=== PATIENT | female | born 1935 | race Hispanic/Latino ===

== ENCOUNTER 2020-10-09 13:36 | Inpatient (IN) | payer MEDICARE ==
[2020-10-09] MEDS ORDERED: Lidocaine 4% Cream 5 GM TUBE w/ Tegaderm ONE (14:15)
[2020-10-09 14:26] LABS: #Basophils 0.1 thou/uL (0.0-0.2); #Eosinphils 0.1 thou/uL (0.0-0.7); #Lymphocytes 1.3 thou/uL (1.20-3.40); #Monocytes 0.6 thou/uL (0.11-0.59); #Neutrophils 7.4 thou/uL (1.40-6.50); %Basophils 0.7 % (0.0-1.0); %Eosinophils 1.2 % (0.0-10.0); %Lymphocytes 13.9 % (21.0-51.0); %Neutrophils 78.2 % (42.0-75.0); Hemoglobin 12.3 g/dL (12.0-16.0); Mean Corpuscular HGB CONC 31.2 g/dL (32.0-36.0); Mean Corpuscular Volume 86.5 fL (78.0-98.0); Platelet Count 128 thou/uL (130-400); RBC Distribution Width 15.8 % (11.5-14.5); Red Blood Cell (RBC) Count 4.56 mill/uL (4.20-5.40); White Blood Cell (WBC) Count 9.4 thou/uL (4.8-10.8)
[2020-10-09 14:34] LABS: ALT (SGPT) 17 U/L (8-55); AST (SGOT) 16 U/L (5-34); Albumin 3.1 g/dL (3.4-4.8); Alkaline Phosphatase 91 U/L (40-110); Anion Gap 16 mmol/L (10-20); BUN (Urea Nitrogen) 25 mg/dL (9.8-20.1); Bilirubin, Total 0.6 mg/dL (0.2-1.2); Calc. Creatinine Clearance 0 mL/min (70-130); Calcium 8.3 mg/dL (7.8-10.44); Carbon Dioxide 28 mmol/L (23-31); Chloride 103 mmol/L (98-107); Globulin 2.8 g/dL (2.4-3.5); Glucose 287 mg/dL (83-110); Lipase 55 U/L (8-78); Potassium 3.5 mmol/L (3.5-5.1); Protein, Total 5.9 g/dL (6.0-8.3); Sodium 143 mmol/L (136-145)
[2020-10-09 14:44] LABS: Bilirubin Negative (Negative); Blood, Urine Negative (Negative); Clarity Cloudy (Clear); Glucose, Urine (Dipstick) Negative (Negative); Ketone, Urine Negative (Negative); Leukocyte Trace (Negative); Nitrite Positive (Negative); Protein, Urine (Dipstick) 100 mg/dL (Neg-Trace); Specific Gravity, Urine 1.015 (1.005-1.030)
[2020-10-09 14:46] LABS: Bacteria/HPF 4+ HPF (None Seen); RBC/HPF 0-3 HPF (0-3); Renal Epithelial 0-3 HPF (None Seen); Squamous Epithelial 0-3 HPF (0-3)
[2020-10-09 14:49] LABS: MDiff Complete? YES
[2020-10-09 14:50] LABS: Large Platelets SLIGHT; Platelet Morphology Comment Appears Decreased
[2020-10-09] MEDS ORDERED: Hyoscyamine Sulfate SL 0.125 mg Tablet ONE (16:10)
[2020-10-09] MEDS ORDERED: Famotidine In NaCl 20 mg/50 ml Premix Bag ONE (16:10)
[2020-10-09 17:00] LABS: Lactic Acid 0.9 mmol/L (0.5-2.2)
[2020-10-09] MEDS ORDERED: Dextrose 50% Abboject 50 ML SYRINGE SLOW IVP PRN (17:10)
[2020-10-09] MEDS ORDERED: Loperamide HCl 2 MG CAP PO PRN ×2 (17:10)
[2020-10-09] MEDS ORDERED: HumaLOG 300 UNITS/3 ML VIAL SC PRN ×2 (17:10)
[2020-10-09] MEDS ORDERED: Ondansetron ODT 4 MG TAB PO PRN (17:10)
[2020-10-09] MEDS ORDERED: Dextrose 5% in Water 1,000 ML IV PRN (17:10)
[2020-10-09] MEDS ORDERED: Acetaminophen 325 MG TAB PO PRN (17:10)
--- NOTE | 2020-10-09 19:35 | CT ---
CT ABDOMEN AND PELVIS WITHOUT CONTRAST: Date: 10-09-2020 Comparison: 05-31-2020 FINDINGS: The lung bases show a few patchy infiltrative areas and a few areas of pleural thickening, more so in the right lung than left. These were not present on the prior abdomen study. The liver was normal in appearance for a noncontrast study. A vague low density area in the spleen sanchez s been seen before and has not changed. The spleen is not enlarged. The pancreas was unremarkable. Th ere is a prior cholecystectomy. The right kidney is now rotated, but neither kidney showed no gross m ass or hydronephrosis. Arteriosclerotic change in the aorta and branch vessels is quite severe, but t here is no aneurysm. The bowel shows no distention or signs of obstruction. Extensive sigmoid diverticulosis is present bu t there are no convincing findings of diverticulitis at the moment. No free air or free fluid was see n. CT of the pelvis shows no pelvic masses, fluid collections, or gross inflammatory changes. Degenerati ve changes of the spine are extensive. IMPRESSION: 1. A few patchy infiltrates and pleural thickening in the lung bases, mostly on the right. Not presen t on the prior CT from 06-11-2020. My understanding is that the patient is Covid positive, so this cou ld easily be the residual of that disease. Overall, the findings are not excessively severe. 2. Extensive sigmoid diverticulosis but no convincing findings of diverticulitis. POS: HOME
[2020-10-09] MEDS ORDERED: hydrOXYzine 25 MG TAB PO SCH (19:45)
[2020-10-09] MEDS: Piperacillin/Tazobactam 2.25 GM in Sodium Chloride 0.9% 100 ML IVPB SCH (19:46)
--- NOTE | 2020-10-09 20:02 | HP ---
CHIEF COMPLAINT: Abdominal pain and diarrhea. HISTORY OF THE PRESENT ILLNESS: Ms. Zacarias is an 85-year-old female, who presented to the emergency department today complaining of periumbilical abdominal pain and diarrhea with acute onset this a.m. She has past medical history of coronary artery disease, status post coronary artery bypass graft and recent hospitalization 09/25 for weakness during which she was found to have a urinary tract infection positive for Escherichia coli greater than 100,000 CFU and SARS COVID 2 positive. She was discharged on September 26. During the hospitalization, she had also reported a recent fall and a CT scan was done to evaluate neck pain and was ruled out also for PE. During this imaging, the patient was found to have a new left-sided rib fracture. She was discharged with a prescription for Omnicef. Cardiology recommended followup as an outpatient, and was consulted due to indeterminate troponins, which was ruled out for acute coronary syndrome upon further evaluation. Apparently at home, the patient had someone attending her, but told EMS that they did not know who she was. She reports she has been getting meals for seniors, and has been eating solid food at home up until today. She denied any associated nausea or vomiting. She has not had fever, chills, or shortness of breath. She denies any chest pain. In the emergency department, she was given a liter of normal saline as her renal function has declined since her previous hospitalization, stool studies have been ordered, urinalysis still looks consistent with urinary tract infection and cultures have been ordered. She was given a dose of Levsin, which improved the diarrhea, but now localizes the pain to the left lower quadrant. PAST MEDICAL HISTORY: 1. Coronary artery disease, status post coronary artery bypass graft. 2. Hypertension. 3. Diabetes, insulin-dependent. 4. Recent hospitalization for COVID-19 and urinary tract infection, Escherichia coli. 5. Left Rib Fracture 10/12. PAST SURGICAL HISTORY: Coronary artery bypass graft. FAMILY HISTORY: Diabetes mellitus. SOCIAL HISTORY: Denies alcohol, tobacco, or illicit drug use. Her living situation previously was with family, but she cannot tell us who has been attending to her at home. She usually ambulates with a cane or a walker as needed. MEDICATIONS: 1. Lantus 20 units subcu b.i.d. 2. Carvedilol 25 mg p.o. b.i.d. 3. Aspirin 81 mg p.o. daily. 4. Atorvastatin 80 mg p.o. q.h.s. 5. Vitamin D3 1000 units p.o. daily. 6. Cholestyramine 1 packet p.o. daily. 7. Furosemide 20 mg p.o. daily p.r.n. 8. Tradjenta 5 mg p.o. daily. 9. Pantoprazole 40 mg daily. 10. Clonidine 0.1 mg p.o. b.i.d. 11. Albuterol HFA 2 puffs inhaled q.4 hours p.r.n. 12. Vitamin C 1000 mg p.o. daily. 13. Omnicef 300 mg p.o. b.i.d. x7, if the patient took this as directed, she would have completed the course. 14. Florastor 250 mg p.o. daily. 15. Zinc 220 mg p.o. daily. ALLERGIES: NO KNOWN DRUG ALLERGIES. REVIEW OF SYSTEMS: GENERAL: Patient denies fever, chills, weakness or malaise. HEENT: Denies any vision changes, nasal congestion, ear pain, sore throat. CARDIOVASCULAR: Denies chest pain, palpitations, orthopnea, PND, or edema. RESPIRATORY: Denies cough, shortness of breath, hemoptysis, or wheezing. ABDOMEN: Positive for abdominal pain, diarrhea. Denies constipation, nausea, vomiting, gross blood in the stool. EXTREMITIES: Patient denies any joint pain. HEMATOLOGIC: Patient denies easy bleeding or bruising. LYMPHATIC: Denies any swollen lymph nodes. PSYCHIATRIC: Denies any history. PHYSICAL EXAMINATION: VITAL SIGNS: Blood pressure 148/68, pulse 68, respirations 16, temp 98.1, pain 0/10, O2 saturation 96% on room air. GENERAL: Well-developed, thin, female, in no acute distress. Alert and oriented to person, place, and time, but intermittently confused regarding presentation and her care status at home. No acute distress. HEENT: Pupils equally round and reactive to light and accommodation, extraocular muscles intact. Nares are patent without discharge. Tongue protrudes in the midline. NECK: Supple without lymphadenopathy, thyromegaly, JVD. CARDIOVASCULAR: Regular rate and rhythm with frequent ectopy. No murmurs, clicks, rubs, or gallops. ABDOMEN: Positive bowel sounds in all 4 quadrants. Soft, tenderness to palpation localized in left lower quadrant without guarding or rebound. EXTREMITIES: No cyanosis, clubbing, or edema. NEUROLOGIC: Cranial nerves II through XII grossly intact without focal deficits. Normal muscle tone. LABORATORY DATA: White count 9.4 with 78% neutrophils, 14% lymphocytes, hemoglobin 12.3, hematocrit 39.5, platelets 128. Sodium 143, potassium 3.5, chloride 103, bicarb 28, BUN 25, creatinine 1.56, glucose 287, lactic acid 2.6 with repeat 0.9, calcium 8.3, AST 16, ALT 17, alkaline phosphatase 91, albumin 3.1, lipase 55. Urinalysis shows 100 protein, positive nitrite, trace leukocyte esterase, 0-3 rbc, 4-6 wbc, 0-3 squamous epithelial cells, 4+ bacteria. Stool occult blood is positive. EKG performed per ED physician shows sinus rhythm without ischemic changes. ASSESSMENT AND PLAN: 1. Left lower quadrant abdominal pain with enteritis. The patient will be admitted and was already given a liter of IV fluids in the emergency room. We will give a peripheral saline lock for now. We will order stool culture, Clostridium difficile, fecal lactoferrin. Due to localized abdominal pain, we will get a CT of the abdomen and pelvis without contrast secondary to her elevated creatinine. We will continue Levsin p.r.n. and loperamide as needed. We will give Zofran for nausea. We will give her clear liquid diet for now. Placed on Pepcid 20 mg b.i.d. and continue probiotic. 2. Acute kidney injury. BUN and creatinine up from previous stay. This may be secondary to dehydration. She was given a liter of fluids in the ER. We will recheck her BMP in the am, and renally dose medications as needed. 3. Insulin-dependent diabetes mellitus. The patient will be placed on her home dose of Lantus, and will be given a NovoLog sliding scale mild and bedtime algorithm correction with Accu-Cheks q.a.c. and q.h.s. 4. Coronary artery disease. The patient will be continued on her home medications. 5. Hypertension. We will monitor while hospitalized. We will continue home medications. 6. Occult blood positive for stool. The patient will need GI consultation for colonoscopy as an outpatient. This may be secondary to infectious diarrhea. We will follow. 7. Urinary tract infection, Escherichia coli, present on admission. Patient should have completed a course of Omnicef outpatient, but it is unclear if she was compliant with that. Following her CT results, we will place her on appropriate antimicrobial therapy, goal directed. We will get a urine culture. 8. Coronavirus disease 19 positive, present on admission. Technically, the patient has past 10 days of onset with new-onset diarrhea. This could be sequela of infection. We will put droplet/contact precautions and give O2 p.r.n. to maintain sats greater than 92%. 9. Recent left rib fracture. The patient denies any pain, but we will give Tylenol p.r.n. 10. Prophylaxis. The patient will be placed on her home PPI, and given mechanical prophylaxis with SCDs secondary to her occult positive stool. CODE STATUS: Patient is full code. DISPOSITION: APS report was filed in the emergency department and will need to follow up report regarding placement. Expect home with Home Health pending that evaluation. Job ID: [id number] [facility]
[2020-10-09] MEDS ORDERED: Albuterol 200 PUFF (6.7GM INHALER) INH PRN (20:40)
[2020-10-09] MEDS ORDERED: Famotidine 20 MG TAB PO SCH (21:00)
[2020-10-09] MEDS: Atorvastatin Calcium 40 MG TAB PO SCH (22:40)
[2020-10-09] MEDS: cloNIDine 0.1 MG TAB PO SCH (22:40)
[2020-10-09] MEDS: Carvedilol 25 MG TAB PO SCH (22:41)
[2020-10-09] MEDS: Lantus 1000 UNITS/10 ML VIAL SC SCH (22:53)
[2020-10-10] MEDS: Piperacillin/Tazobactam 2.25 GM in Sodium Chloride 0.9% 100 ML IVPB SCH ×4 (01:22→22:15)
[2020-10-10 05:32] LABS: ALT (SGPT) 14 U/L (8-55); AST (SGOT) 14 U/L (5-34); Albumin 2.6 g/dL (3.4-4.8); Alkaline Phosphatase 73 U/L (40-110); Anion Gap 12 mmol/L (10-20); BUN (Urea Nitrogen) 23 mg/dL (9.8-20.1); Bilirubin, Total 0.5 mg/dL (0.2-1.2); Calc. Creatinine Clearance 31 mL/min (70-130); Calcium 7.9 mg/dL (7.8-10.44); Carbon Dioxide 29 mmol/L (23-31); Chloride 107 mmol/L (98-107); Globulin 2.3 g/dL (2.4-3.5); Glucose 123 mg/dL (83-110); Potassium 3.2 mmol/L (3.5-5.1); Protein, Total 4.9 g/dL (6.0-8.3); Sodium 145 mmol/L (136-145)
[2020-10-10 05:36] LABS: #Basophils 0.1 thou/uL (0.0-0.2); #Eosinphils 0.1 thou/uL (0.0-0.7); #Lymphocytes 1.8 thou/uL (1.20-3.40); #Monocytes 0.8 thou/uL (0.11-0.59); #Neutrophils 4.2 thou/uL (1.40-6.50); %Basophils 1.1 % (0.0-1.0); %Eosinophils 1.5 % (0.0-10.0); %Lymphocytes 25.2 % (21.0-51.0); %Monocytes 11.3 % (0.0-10.0); %Neutrophils 60.9 % (42.0-75.0); Hemoglobin 10.6 g/dL (12.0-16.0); Mean Corpuscular Hemoglobin 26.6 pg (27.0-31.0); Mean Platelet Volume 14.2 fL (7.4-10.4); Platelet Count 108 thou/uL (130-400); RBC Distribution Width 15.7 % (11.5-14.5); Red Blood Cell (RBC) Count 3.97 mill/uL (4.20-5.40)
[2020-10-10 05:57] LABS: Platelet Morphology Comment Appears Decreased; RBC Morphology Normal
[2020-10-10 06:03] LABS: Burr Cells SLIGHT = 2-5 cells (100X) (0-1/hpf); Elliptocytes SLIGHT = 2-5 cells (100X) (0-1/hpf); Poikilocytosis SLIGHT = 6-15 cells (100X) (0-5/hpf)
[2020-10-10] MEDS: Ascorbic Acid 500 mg Chewable Tablet PO SCH (08:08)
[2020-10-10] MEDS: Cholecalciferol 1,000 UNITS (25 MCG) TAB PO SCH (08:09)
[2020-10-10] MEDS: Saccharomyces boulardii 250 MG CAP PO SCH (08:09)
[2020-10-10] MEDS: Aspirin 81 mg Enteric Coated Tablet PO SCH (08:09)
[2020-10-10] MEDS: Carvedilol 25 MG TAB PO SCH ×2 (08:09→22:16)
[2020-10-10] MEDS: cloNIDine 0.1 MG TAB PO SCH ×2 (08:09→22:17)
[2020-10-10] MEDS: Zinc Sulfate 220 MG CAP PO SCH (08:09)
[2020-10-10] MEDS: Losartan Potassium 50 MG TAB PO SCH (08:09)
[2020-10-10] MEDS ORDERED: Alogliptin 6.25 MG TAB PO SCH ×2 (09:00→09:45)
[2020-10-10] MEDS ORDERED: Prevnar 13-Val Conj/PF 0.5 ML SYRINGE IM ONE (09:00)
[2020-10-10] MEDS ORDERED: FLU VACC QS2020-21(65YR UP)/PF 240 MCG/0.7 ML SYRINGE IM ONE (09:00)
[2020-10-10] MEDS ORDERED: Cholestyramine/Aspartame 4 gm Packet PO SCH (09:45)
[2020-10-10] MEDS: Lantus 1000 UNITS/10 ML VIAL SC SCH ×2 (09:56→22:18)
[2020-10-10] MEDS ORDERED: Potassium Chloride 20 MEQ TAB PO SCH (10:15)
[2020-10-10 11:20] VITALS: BMI 24.9
[2020-10-10] MEDS ORDERED: risperiDONE 0.5 MG TAB PO PRN (17:03)
--- NOTE | 2020-10-10 17:19 | PDOC.BPN ---
- Brief Progress Note Encounter Date: 10/10/20 Encounter Time: 17:18 Patient seen and examined this afternoon. She had an episode of altered mental status that included agitation and anxiety consistent with sundowning last p.m. Brit cruz was called. Hydroxyzine was ordered. Pt. remained restless last p.m. Per staff, she was alert and oriented x 4, but this evening she is becoming confused again. She had a loose stool this a.m. but no further diarrhea episodes. Her abdominal pain has resolved. She is tolerating a clear liquid diet without nausea or vomiting. Her [id number] called to check on her earlier today. Selected Entries 10/10/20 12:00 Pulse Rhythm Regular Respiratory Non-Labored Effort Temperature Oral Source Temperature 97.9 F Pulse Rate 58 L Blood Pressure 148/64 H [Semi-Fowlers] Respiratory 18 Rate O2 Sat by Pulse 98 Oximetry Oxygen Delivery Nasal Cannula Method Laboratory Tests 10/10/20 10/10/20 07:39 16:30 POC Glucose 72 103 C difficile antigen positive, toxin negative. Stool culture pending. Ecoli per urine culture x >75K CFU. Hospitalist ROS - Review of Systems Constitutional: denies: fever, chills, sweats, weakness Eyes: denies: vision change Respiratory: denies: cough, shortness of breath Cardiovascular: denies: chest pain, palpitations Gastrointestinal: denies: nausea, vomiting, abdominal pain, diarrhea, constipation Neurological: reports: confusion. denies: weakness - Medication Medications: Active Medications Generic Name Dose Route Start Last Admin Trade Name Jakobq PRN Reason Stop Dose Admin Acetaminophen 650 mg 10/09/20 17:10 10/10/20 14:37 Acetaminophen 325 Mg Tab PO 650 mg Q4H PRN Administration Headache/Fever/Mild Pain (1-3) Ascorbic Acid 1,000 mg 10/10/20 09:00 10/10/20 08:08 Ascorbic Acid 500 Mg Chewable Tablet PO 1,000 mg DAILY GAUTAM Administration Aspirin 81 mg 10/10/20 09:00 10/10/20 08:09 Aspirin 81 Mg Enteric Coated Tablet PO 81 mg DAILY GAUTAM Administration Atorvastatin Calcium 80 mg 10/09/20 21:00 10/09/20 22:40 Atorvastatin Calcium 40 Mg Tab PO 80 mg HS GAUTAM Administration Carvedilol 25 mg 10/09/20 21:00 10/10/20 08:09 Carvedilol 25 Mg Tab PO 25 mg BID GAUTAM Administration Cholecalciferol 1,000 units 10/10/20 09:00 10/10/20 08:09 Cholecalciferol 1,000 Units (25 Mcg) Tab PO 1,000 units DAILY GAUTAM Administration Clonidine 0.1 mg 10/09/20 21:00 10/10/20 08:09 Clonidine 0.1 Mg Tab PO 0.1 mg BID GAUTAM Administration Piperacillin Sod/Tazobactam 100 mls @ 200 mls/hr 10/09/20 20:00 10/10/20 14:37 Sod 2.25 gm/ Sodium Chloride IVPB 100 mls 0200,0800,1400,2000 GAUTAM Administration Insulin Glargine 20 units 10/09/20 21:00 10/10/20 09:56 Lantus 1000 Units/10 Ml Vial SC 20 unit BID GAUTAM Administration Losartan Potassium 50 mg 10/10/20 09:00 10/10/20 08:09 Losartan Potassium 50 Mg Tab PO 50 mg DAILY GAUTAM Administration Pantoprazole Sodium 40 mg 10/10/20 09:00 10/10/20 08:09 Pantoprazole 40 Mg Tab PO 40 mg DAILY GAUTAM Administration Saccharomyces Boulardii 250 mg 10/10/20 09:00 10/10/20 08:09 Saccharomyces Boulardii 250 Mg Cap PO 250 mg DAILY GAUTAM Administration Zinc Sulfate 220 mg 10/10/20 09:00 10/10/20 08:09 Zinc Sulfate 220 Mg Cap PO 220 mg DAILY GAUTAM Administration - Exam General Appearance: NAD (sleeping but easily arousable) Eye: PERRL, anicteric sclera ENT: normocephalic atraumatic, moist mucosa Neck: supple, no lymphadenopathy Heart: RRR, no murmur Respiratory: CTAB, no wheezes Gastrointestinal: soft, non-tender, non-distended, normal bowel sounds, no guarding, no rigidity Extremities: no cyanosis, no clubbing, no edema Neurological: cranial nerve grossly intact, no weakness, no focal deficits Musculoskeletal: normal tone Psychiatric: normal affect, oriented to person Hosp A/P (1) Acute infective gastroenteritis Code(s): A09 - INFECTIOUS GASTROENTERITIS AND COLITIS, UNSPECIFIED Status: Acute Plan: Suspect related to Covid 19. Given that the diarrhea has ceased, and c. diff is antigen positive, toxin negative, no treatment for c. diff will be needed at this time. Continue probiotic. Will need gastroenterology as outpatient for screening colonoscopy at some point due to stool occult blood positive. Advance diet as tolerated. (2) Diverticulosis Code(s): K57.90 - DVRTCLOS OF INTEST, PART UNSP, W/O PERF OR ABSCESS W/O BLEED Status: Acute Plan: No signs of inflammatory changes per CT scan. Will observe. (3) Acute kidney injury Code(s): N17.9 - ACUTE KIDNEY FAILURE, UNSPECIFIED Status: Acute Plan: She is tolerating PO. Will repeat BMP in a.m. (4) Code(s): F05 - DELIRIUM DUE TO KNOWN PHYSIOLOGICAL CONDITION Status: Acute Plan: Will give patient a small dose of risperdone at bedtime and PRN. (5) COVID-19 Code(s): U07.1 - COVID-19 Status: Acute (6) E. coli urinary tract infection Code(s): N39.0 - URINARY TRACT INFECTION, SITE NOT SPECIFIED; B96.20 - UNSP ESCHERICHIA COLI THE CAUSE OF DISEASES CLASSD ELSWHR Status: Acute Plan: Await final ID and sensitivity. Continue Zosyn. (7) Hypokalemia Code(s): E87.6 - HYPOKALEMIA Status: Acute Plan: Given a dose of potassium this a.m. Recheck tomorrow. - Plan plan discussed w/ family, social insurance specialist, out of bed/ambulate, DVT proph w/SCDs, GI proph
[2020-10-10] MEDS: Atorvastatin Calcium 40 MG TAB PO SCH (22:15)
[2020-10-10] MEDS: risperiDONE 0.5 MG TAB PO SCH (22:18)
[2020-10-11] MEDS: Piperacillin/Tazobactam 2.25 GM in Sodium Chloride 0.9% 100 ML IVPB SCH ×3 (02:20→14:07)
[2020-10-11 05:39] LABS: Anion Gap 12 mmol/L (10-20); BUN (Urea Nitrogen) 19 mg/dL (9.8-20.1); Calc. Creatinine Clearance 32 mL/min (70-130); Calcium 7.8 mg/dL (7.8-10.44); Carbon Dioxide 27 mmol/L (23-31); Chloride 109 mmol/L (98-107); Glucose 143 mg/dL (83-110); Potassium 4.2 mmol/L (3.5-5.1); Sodium 144 mmol/L (136-145)
[2020-10-11] MEDS: Cholestyramine/Aspartame 4 gm Packet PO SCH (08:27)
[2020-10-11] MEDS: Lantus 1000 UNITS/10 ML VIAL SC SCH ×2 (08:27→21:20)
[2020-10-11] MEDS: Saccharomyces boulardii 250 MG CAP PO SCH (08:28)
[2020-10-11] MEDS: Ascorbic Acid 500 mg Chewable Tablet PO SCH (08:28)
[2020-10-11] MEDS: cloNIDine 0.1 MG TAB PO SCH ×2 (08:29→21:22)
[2020-10-11] MEDS: Losartan Potassium 50 MG TAB PO SCH (08:29)
[2020-10-11] MEDS: Cholecalciferol 1,000 UNITS (25 MCG) TAB PO SCH (08:29)
[2020-10-11] MEDS: Alogliptin 6.25 MG TAB PO SCH (08:30)
[2020-10-11] MEDS: Aspirin 81 mg Enteric Coated Tablet PO SCH (08:30)
[2020-10-11] MEDS: Carvedilol 25 MG TAB PO SCH ×2 (08:30→21:22)
[2020-10-11] MEDS: Zinc Sulfate 220 MG CAP PO SCH (08:30)
--- NOTE | 2020-10-11 15:12 | PDOC.BPN ---
- Brief Progress Note Encounter Date: 10/11/20 Encounter Time: 15:10 Mrs. Zacarias is feeling better. She has not had any diarrhea stools since yesterday. She had a brief episode of nausea this a.m. that resolved with Zo hector. Her glucose also dropped into the 50s before her breakfast but came up after eating. She has no complaints. owning was improved last p.m. with less agitation. She slept all night with the respiridone. She is alert today and still will not identify anyone that she wants involved in her care. She states that her doctors make her medical decisions and she has transportation arrangements with her insurance to get her to and from her doctor's appointments. Selected Entries 10/11/20 10/11/20 06:30 08:29 Respiratory Normal Effort Temperature 96.9 F L Pulse Rate 59 L Blood Pressure 152/68 H Respiratory 18 Rate O2 Sat by Pulse 99 Oximetry Oxygen Delivery Room Air Method Hospitalist ROS - Review of Systems Constitutional: denies: fever, chills, weakness Respiratory: denies: cough, shortness of breath Cardiovascular: denies: chest pain Gastrointestinal: denies: vomiting, abdominal pain, diarrhea, constipation Genitourinary: denies: dysuria Skin: denies: rash - Medication Medications: Active Medications Generic Name Dose Route Start Last Admin Trade Name Jakobq PRN Reason Stop Dose Admin Acetaminophen 650 mg 10/09/20 17:10 10/10/20 14:37 Acetaminophen 325 Mg Tab PO 650 mg Q4H PRN Administration Headache/Fever/Mild Pain (1-3) Alogliptin Benzoate 12.5 mg 10/11/20 09:00 10/11/20 08:30 Alogliptin 6.25 Mg Tab PO 12.5 mg DAILY GAUTAM Administration Ascorbic Acid 1,000 mg 10/10/20 09:00 10/11/20 08:28 Ascorbic Acid 500 Mg Chewable Tablet PO 1,000 mg DAILY GAUTAM Administration Aspirin 81 mg 10/10/20 09:00 10/11/20 08:30 Aspirin 81 Mg Enteric Coated Tablet PO 81 mg DAILY GAUTAM Administration Atorvastatin Calcium 80 mg 10/09/20 21:00 10/10/20 22:15 Atorvastatin Calcium 40 Mg Tab PO 80 mg HS GUATAM Administration Carvedilol 25 mg 10/09/20 21:00 10/11/20 08:30 Carvedilol 25 Mg Tab PO 25 mg BID GAUTAM Administration Cholecalciferol 1,000 units 10/10/20 09:00 10/11/20 08:29 Cholecalciferol 1,000 Units (25 Mcg) Tab PO 1,000 units DAILY GAUTAM Administration Cholestyramine Resin 4 gm 10/11/20 09:00 10/11/20 08:27 Cholestyramine/Aspartame 4 Gm Packet PO 4 gm DAILY GAUTAM Administration Clonidine 0.1 mg 10/09/20 21:00 10/11/20 08:29 Clonidine 0.1 Mg Tab PO 0.1 mg BID GAUTAM Administration Losartan Potassium 50 mg 10/10/20 09:00 10/11/20 08:29 Losartan Potassium 50 Mg Tab PO 50 mg DAILY GAUTAM Administration Ondansetron HCl 4 mg 10/09/20 17:10 10/11/20 09:43 Ondansetron Odt 4 Mg Tab PO 4 mg Q6H PRN Administration Nausea/Vomiting Pantoprazole Sodium 40 mg 10/10/20 09:00 10/11/20 08:30 Pantoprazole 40 Mg Tab PO 40 mg DAILY GAUTAM Administration Risperidone 0.25 mg 10/10/20 21:00 10/10/20 22:18 Risperidone 0.5 Mg Tab PO 0.25 mg HS GAUTAM Administration Saccharomyces Boulardii 250 mg 10/10/20 09:00 10/11/20 08:28 Saccharomyces Boulardii 250 Mg Cap PO 250 mg DAILY GAUTAM Administration Sodium Chloride 10 ml 10/10/20 21:00 10/11/20 08:27 Flush - Normal Saline 10 Ml Syringe IVF 10 ml Q12HR GAUTAM Administration Zinc Sulfate 220 mg 10/10/20 09:00 10/11/20 08:30 Zinc Sulfate 220 Mg Cap PO 220 mg DAILY GAUTAM Administration - Exam General Appearance: NAD, awake alert Eye: PERRL, anicteric sclera ENT: normocephalic atraumatic, moist mucosa Neck: supple Heart: RRR, no murmur Respiratory: CTAB, no wheezes, no rales, no ronchi Gastrointestinal: soft, non-tender, non-distended, normal bowel sounds, no palpable masses, no guarding Extremities: no cyanosis, no clubbing, no edema Skin: normal turgor Neurological: cranial nerve grossly intact, no weakness Psychiatric: normal affect, oriented to person. negative: oriented to place, oriented to time Hospitalist Results - Labs Result Diagrams: 10/10/20 04:55 10/11/20 04:55 Lab results: WBC 7.0 thou/uL (4.8-10.8) 10/10/20 04:55 Hgb 10.6 g/dL (12.0-16.0) L 10/10/20 04:55 Hct 34.1 % (36.0-47.0) L 10/10/20 04:55 MCV 86.0 fL (78.0-98.0) 10/10/20 04:55 Plt Count 108 thou/uL (130-400) L 10/10/20 04:55 Neutrophils % 60.9 % (42.0-75.0) 10/10/20 04:55 Sodium 144 mmol/L (136-145) 10/11/20 04:55 Potassium 4.2 mmol/L (3.5-5.1) 10/11/20 04:55 Chloride 109 mmol/L (98-107) H 10/11/20 04:55 Carbon Dioxide 27 mmol/L (23-31) 10/11/20 04:55 BUN 19 mg/dL (9.8-20.1) 10/11/20 04:55 Creatinine 1.30 mg/dL (0.6-1.1) H 10/11/20 04:55 Glucose 143 mg/dL (83-110) H 10/11/20 04:55 Lactic Acid 0.9 mmol/L (0.5-2.2) 10/09/20 16:37 Calcium 7.8 mg/dL (7.8-10.44) 10/11/20 04:55 Total Bilirubin 0.5 mg/dL (0.2-1.2) 10/10/20 04:55 AST 14 U/L (5-34) 10/10/20 04:55 ALT 14 U/L (8-55) 10/10/20 04:55 Alkaline Phosphatase 73 U/L (40-110) 10/10/20 04:55 Serum Total Protein 4.9 g/dL (6.0-8.3) L 10/10/20 04:55 Albumin 2.6 g/dL (3.4-4.8) L 10/10/20 04:55 Lipase 55 U/L (8-78) 10/09/20 14:10 Urine Ketones Negative mg/dL (Negative) 10/09/20 14:19 Urine Blood Negative (Negative) 10/09/20 14:19 Urine Nitrite Positive (Negative) A 10/09/20 14:19 Ur Leukocyte Esterase Trace (Negative) H 10/09/20 14:19 Urine RBC 0-3 HPF (0-3) 10/09/20 14:19 Urine WBC 4-6 HPF (0-3) A 10/09/20 14:19 Ur Squamous Epith Cells 0-3 HPF (0-3) 10/09/20 14:19 Urine Bacteria 4+ HPF (None Seen) A 10/09/20 14:19 Hosp A/P (1) Acute infective gastroenteritis Code(s): A09 - INFECTIOUS GASTROENTERITIS AND COLITIS, UNSPECIFIED Status: Resolved Plan: C. diff antigen positive, toxin negative without further episodes or inflammatory changes on CT scan. Will need outpatient GI referral for colonoscopy due to heme positive stool on admission. (2) Acute kidney injury Code(s): N17.9 - ACUTE KIDNEY FAILURE, UNSPECIFIED Status: Acute Plan: Continue hydration orally. Recheck in a.m. (3) COVID-19 Code(s): U07.1 - COVID-19 Status: Acute Plan: Can d/c isolation/droplet precautions once she is 72 hours past her most recent symptoms. It has been >10 days since diagnosis. (4) Diverticulosis Code(s): K57.90 - DVRTCLOS OF INTEST, PART UNSP, W/O PERF OR ABSCESS W/O BLEED Status: Chronic Plan: Low residue diet. (5) E. coli urinary tract infection Code(s): N39.0 - URINARY TRACT INFECTION, SITE NOT SPECIFIED; B96.20 - UNSP ESCHERICHIA COLI THE CAUSE OF DISEASES CLASSD ELSWHR Status: Acute Plan: E coli sensitivities back. Sensitive to zosyn but resistant to ampicillin. Sensitive to Bactrim. Will d/c Zosyn and start Bactrim DS BID. (6) Hypokalemia Code(s): E87.6 - HYPOKALEMIA Status: Resolved (7) Code(s): F05 - DELIRIUM DUE TO KNOWN PHYSIOLOGICAL CONDITION Status: Acute Plan: Continue respiridone at night and prn. She will need 24 hour care if her mental status doesn't resolve further, especially at night. Still no clear medical decision maker identified. Will get a sr. social media & mobile manager consult. - Plan sr. social media & mobile manager, out of bed/ambulate
[2020-10-11] MEDS: Atorvastatin Calcium 40 MG TAB PO SCH (21:22)
[2020-10-11] MEDS: Sulfameth/Trimethoprim DS 800-160mg TAB PO SCH (21:22)
[2020-10-11] MEDS: risperiDONE 0.5 MG TAB PO SCH (21:23)
[2020-10-12 05:24] LABS: Anion Gap 11 mmol/L (10-20); BUN (Urea Nitrogen) 16 mg/dL (9.8-20.1); Calc. Creatinine Clearance 37 mL/min (70-130); Carbon Dioxide 26 mmol/L (23-31); Chloride 110 mmol/L (98-107); Glucose 78 mg/dL (83-110); Potassium 3.8 mmol/L (3.5-5.1); Sodium 143 mmol/L (136-145)
[2020-10-12] MEDS: Lantus 1000 UNITS/10 ML VIAL SC SCH ×2 (09:28→21:20)
[2020-10-12] MEDS: Ascorbic Acid 500 mg Chewable Tablet PO SCH (09:28)
[2020-10-12] MEDS: Cholestyramine/Aspartame 4 gm Packet PO SCH (09:28)
[2020-10-12] MEDS: Aspirin 81 mg Enteric Coated Tablet PO SCH (09:29)
[2020-10-12] MEDS: Zinc Sulfate 220 MG CAP PO SCH (09:30)
[2020-10-12] MEDS: Cholecalciferol 1,000 UNITS (25 MCG) TAB PO SCH (09:30)
[2020-10-12] MEDS: Losartan Potassium 50 MG TAB PO SCH (09:30)
[2020-10-12] MEDS: Sulfameth/Trimethoprim DS 800-160mg TAB PO SCH ×2 (09:30→21:05)
[2020-10-12] MEDS: Alogliptin 6.25 MG TAB PO SCH (09:30)
[2020-10-12] MEDS: Saccharomyces boulardii 250 MG CAP PO SCH (09:30)
[2020-10-12] MEDS: Carvedilol 25 MG TAB PO SCH ×2 (09:30→20:00)
[2020-10-12] MEDS: cloNIDine 0.1 MG TAB PO SCH ×2 (09:30→21:06)
--- NOTE | 2020-10-12 13:19 | PDOC.BPN ---
- Brief Progress Note Encounter Date: 10/12/20 Encounter Time: 13:17 Pt. was seen today. She has no complaints. No further diarrhea or abdominal pain. No hypoglycemia or nausea this a.m. Family present at the hospital today state that they cannot provide 24 hour care for her at home and request that she go to assisted facility until she is able to be left alone. Selected Entries 10/12/20 10/12/20 10/12/20 06:30 08:00 09:30 Respiratory Non-Labored Effort Temperature 97.9 F Pulse Rate 85 Blood Pressure 146/72 H Respiratory 20 Rate O2 Sat by Pulse 98 Oximetry Oxygen Delivery Room Air Method Hospitalist ROS - Review of Systems Constitutional: denies: fever, chills, sweats, weakness Eyes: denies: vision change ENT: denies: nose congestion Respiratory: denies: cough, shortness of breath Cardiovascular: denies: chest pain, palpitations Gastrointestinal: denies: nausea, vomiting, abdominal pain, diarrhea, constipation Genitourinary: denies: dysuria Skin: denies: rash Neurological: denies: weakness - Medication Medications: Active Medications Generic Name Dose Route Start Last Admin Trade Name Freq PRN Reason Stop Dose Admin Acetaminophen 650 mg 10/09/20 17:10 10/10/20 14:37 Acetaminophen 325 Mg Tab PO 650 mg Q4H PRN Administration Headache/Fever/Mild Pain (1-3) Alogliptin Benzoate 12.5 mg 10/11/20 09:00 10/12/20 09:30 Alogliptin 6.25 Mg Tab PO 12.5 mg DAILY GAUTAM Administration Ascorbic Acid 1,000 mg 10/10/20 09:00 10/12/20 09:28 Ascorbic Acid 500 Mg Chewable Tablet PO 1,000 mg DAILY GAUTAM Administration Aspirin 81 mg 10/10/20 09:00 10/12/20 09:29 Aspirin 81 Mg Enteric Coated Tablet PO 81 mg DAILY GAUTAM Administration Atorvastatin Calcium 80 mg 10/09/20 21:00 10/11/20 21:22 Atorvastatin Calcium 40 Mg Tab PO 80 mg HS GAUTAM Administration Carvedilol 25 mg 10/09/20 21:00 10/12/20 09:30 Carvedilol 25 Mg Tab PO 25 mg BID GAUTAM Administration Cholecalciferol 1,000 units 10/10/20 09:00 10/12/20 09:30 Cholecalciferol 1,000 Units (25 Mcg) Tab PO 1,000 units DAILY GAUTAM Administration Cholestyramine Resin 4 gm 10/11/20 09:00 10/12/20 09:28 Cholestyramine/Aspartame 4 Gm Packet PO 4 gm DAILY GAUATM Administration Clonidine 0.1 mg 10/09/20 21:00 10/12/20 09:30 Clonidine 0.1 Mg Tab PO 0.1 mg BID GAUTAM Administration Insulin Glargine 15 units 10/11/20 14:58 10/12/20 09:28 Lantus 1000 Units/10 Ml Vial SC 15 unit BID GAUTAM Administration Insulin Human Lispro 0 units 10/09/20 17:10 10/11/20 17:25 Humalog 300 Units/3 Ml Vial SC 3 unit .MILD SLIDING SCALE PRN Administration Mild Correctional Scale Insulin Human Lispro 0 units 10/09/20 17:10 10/11/20 21:21 Humalog 300 Units/3 Ml Vial SC 3 unit .BEDTIME SLIDING SC PRN Administration Bedtime Correctional Scale Losartan Potassium 50 mg 10/10/20 09:00 10/12/20 09:30 Losartan Potassium 50 Mg Tab PO 50 mg DAILY GAUTAM Administration Ondansetron HCl 4 mg 10/09/20 17:10 10/11/20 09:43 Ondansetron Odt 4 Mg Tab PO 4 mg Q6H PRN Administration Nausea/Vomiting Pantoprazole Sodium 40 mg 10/10/20 09:00 10/12/20 09:31 Pantoprazole 40 Mg Tab PO 40 mg DAILY GAUTAM Administration Risperidone 0.25 mg 10/10/20 21:00 10/11/20 21:23 Risperidone 0.5 Mg Tab PO 0.25 mg HS GAUTAM Administration Saccharomyces Boulardii 250 mg 10/10/20 09:00 10/12/20 09:30 Saccharomyces Boulardii 250 Mg Cap PO 250 mg DAILY GAUTAM Administration Sodium Chloride 10 ml 10/10/20 21:00 10/12/20 09:32 Flush - Normal Saline 10 Ml Syringe IVF 10 ml Q12HR GAUTAM Administration Trimethoprim/Sulfamethoxazole 1 tab 10/11/20 21:00 10/12/20 09:30 Sulfameth/Trimethoprim Ds 800-160mg Tab PO 1 tab BID GAUTAM Administration Zinc Sulfate 220 mg 10/10/20 09:00 10/12/20 09:30 Zinc Sulfate 220 Mg Cap PO 220 mg DAILY GAUTAM Administration - Exam General Appearance: NAD, awake alert Eye: PERRL, anicteric sclera ENT: normocephalic atraumatic, moist mucosa Neck: supple, no lymphadenopathy Heart: RRR, no murmur Respiratory: CTAB, no wheezes, no rales, no ronchi, normal chest expansion Gastrointestinal: soft, non-tender, non-distended, normal bowel sounds, no palpable masses, no guarding, no rigidity Extremities: no cyanosis, no clubbing, no edema Skin: normal turgor Neurological: cranial nerve grossly intact Musculoskeletal: normal strength Psychiatric: oriented to person. negative: oriented to place, oriented to time Hospitalist Results - Labs Result Diagrams: 10/10/20 04:55 10/12/20 04:52 Lab results: WBC 7.0 thou/uL (4.8-10.8) 10/10/20 04:55 Hgb 10.6 g/dL (12.0-16.0) L 10/10/20 04:55 Hct 34.1 % (36.0-47.0) L 10/10/20 04:55 MCV 86.0 fL (78.0-98.0) 10/10/20 04:55 Plt Count 108 thou/uL (130-400) L 10/10/20 04:55 Neutrophils % 60.9 % (42.0-75.0) 10/10/20 04:55 Sodium 143 mmol/L (136-145) 10/12/20 04:52 Potassium 3.8 mmol/L (3.5-5.1) 10/12/20 04:52 Chloride 110 mmol/L (98-107) H 10/12/20 04:52 Carbon Dioxide 26 mmol/L (23-31) 10/12/20 04:52 BUN 16 mg/dL (9.8-20.1) 10/12/20 04:52 Creatinine 1.11 mg/dL (0.6-1.1) H 10/12/20 04:52 Glucose 78 mg/dL (83-110) L 10/12/20 04:52 Lactic Acid 0.9 mmol/L (0.5-2.2) 10/09/20 16:37 Calcium 8.0 mg/dL (7.8-10.44) 10/12/20 04:52 Total Bilirubin 0.5 mg/dL (0.2-1.2) 10/10/20 04:55 AST 14 U/L (5-34) 10/10/20 04:55 ALT 14 U/L (8-55) 10/10/20 04:55 Alkaline Phosphatase 73 U/L (40-110) 10/10/20 04:55 Serum Total Protein 4.9 g/dL (6.0-8.3) L 10/10/20 04:55 Albumin 2.6 g/dL (3.4-4.8) L 10/10/20 04:55 Lipase 55 U/L (8-78) 10/09/20 14:10 Urine Ketones Negative mg/dL (Negative) 10/09/20 14:19 Urine Blood Negative (Negative) 10/09/20 14:19 Urine Nitrite Positive (Negative) A 10/09/20 14:19 Ur Leukocyte Esterase Trace (Negative) H 10/09/20 14:19 Urine RBC 0-3 HPF (0-3) 10/09/20 14:19 Urine WBC 4-6 HPF (0-3) A 10/09/20 14:19 Ur Squamous Epith Cells 0-3 HPF (0-3) 10/09/20 14:19 Urine Bacteria 4+ HPF (None Seen) A 10/09/20 14:19 Hosp A/P (1) Acute infective gastroenteritis Code(s): A09 - INFECTIOUS GASTROENTERITIS AND COLITIS, UNSPECIFIED Status: Resolved (2) Acute kidney injury Code(s): N17.9 - ACUTE KIDNEY FAILURE, UNSPECIFIED Status: Acute (3) COVID-19 Code(s): U07.1 - COVID-19 Status: Acute (4) Diverticulosis Code(s): K57.90 - DVRTCLOS OF INTEST, PART UNSP, W/O PERF OR ABSCESS W/O BLEED Status: Chronic (5) E. coli urinary tract infection Code(s): N39.0 - URINARY TRACT INFECTION, SITE NOT SPECIFIED; B96.20 - UNSP ESCHERICHIA COLI THE CAUSE OF DISEASES CLASSD ELSWHR Status: Acute (6) Hypokalemia Code(s): E87.6 - HYPOKALEMIA Status: Resolved (7) Sundowning Code(s): F05 - DELIRIUM DUE TO KNOWN PHYSIOLOGICAL CONDITION Status: Acute - Plan plan discussed w/ family, continue antibiotics, caseworker protective services, out of bed/ambulate Pt. will be able to discontinue airborne and droplet precautions when she is 72 hours or greater without symptoms. She is at the 48 hour clint today. Referrral to assisted facility has been performed. Awaiting placement. APS to f/u with patient after discharge.
[2020-10-12] MEDS: Atorvastatin Calcium 40 MG TAB PO SCH (20:00)
[2020-10-12] MEDS: risperiDONE 0.5 MG TAB PO SCH (21:05)
[2020-10-13] MEDS: Cholestyramine/Aspartame 4 gm Packet PO SCH (08:58)
[2020-10-13] MEDS: Alogliptin 6.25 MG TAB PO SCH (08:59)
[2020-10-13] MEDS: Losartan Potassium 50 MG TAB PO SCH (09:04)
[2020-10-13] MEDS: Cholecalciferol 1,000 UNITS (25 MCG) TAB PO SCH (09:04)
[2020-10-13] MEDS: Zinc Sulfate 220 MG CAP PO SCH (09:04)
[2020-10-13] MEDS: Sulfameth/Trimethoprim DS 800-160mg TAB PO SCH (09:04)
[2020-10-13] MEDS: Saccharomyces boulardii 250 MG CAP PO SCH (09:04)
[2020-10-13] MEDS: cloNIDine 0.1 MG TAB PO SCH (09:05)
[2020-10-13] MEDS: Carvedilol 25 MG TAB PO SCH (09:05)
[2020-10-13] MEDS: Lantus 1000 UNITS/10 ML VIAL SC SCH (09:05)
[2020-10-13] MEDS: Aspirin 81 mg Enteric Coated Tablet PO SCH (09:05)
[2020-10-13] MEDS: Ascorbic Acid 500 mg Chewable Tablet PO SCH (09:05)
[2020-10-13 11:05] VITALS: BP 126/77; TEMP 96.7
--- NOTE | 2020-10-13 12:44 | PDOC.DS.DS ---
Provider - Provider Date of Admission: 10/09/20 16:00 Date of Discharge: 10/13/20 Admitting Provider: Malachi Massey DO Primary Care Physician: Ramiro Rubio MD Course - Hospital Course Hospital Course: Mrs. Zacarias is a 85 y/o female who presented to the ED with c/o diffuse diarrhea and periumbilical abdominal pain, later localized to the left lower quadrant. She had recently been admitted at [facility] for weakness and diagnosed with Covid 19 on 09/25/20. She has denied fever, chills, myalgias throughout her stay here and has had no respiratory symptoms. She has not required O2. She was given a dose of Levsin in the ED, which improved her diarrhea, and we were able to advance her diet. CT scan of the abdomen and pelvis without contrast was performed and showed diffuse left sided diverticulosis without evidence of inflammatory changes. She was positive for occult blood, and c diff antigen was positive toxin was negative. By the time that result was back, she was not having any further diarrhea, and her abdominal pain had resolved. She has been continued on a probiotic and needs to adhere to a low residue diet. She will need to see GI as an outpatient if her stool continues to be occult blood positive. She has never had colon cancer scr eening. She also had acute kidney injury which improved with IVF and PO hydration. Empirically, she was started on Zosyn for abdominal coverage. She had a urine culture that grew out e coli that was sensitive to Bactrim. Her IV Zosyn was discontinued and Bactrim started on 10/11/20. She will need to complete an additional 5 days for a full 7 day course. Regarding her diabetes, on her home regimen, she experienced a couple of glucose values in the 50s in the early a.m. and her dosage was adjusted. She will continue accuchecks QAC and QHS and her home oral regimen. Will order a mild sliding scale for during the day and a bedtime hyperglycemia correction algorithmn. She presented confused, and it wasn't clear who her primary caregiver was at the time. During her course, she would have significant sundowning in the afternoons which improved with a dose of risperidone at bedtime. This can be continued short term, and then wean as her cognition improves. OT was consulted and performed a MMSE on 10/12/2019, and the patient scored 9/30 with 23 or below classified as an impairment. The examination was limited by low education, but she struggled in all areas: orientation, attention, recall and some language (she was unable to repeat sentence, write sentence, unable to copy a design or follow 3 step directions due to self distraction and poor recall). She will thus require 24 hour care and no family has been available to comply with that. Therefore, she has been accepted to [facility] for continued short term rehab, shelter, PT and OT. She has a repeat covid test that is pending, which will determine where she is placed there. An APS report was filed in the ED due to concerns regarding her care, and they will perform an assessment upon her shelter discharge. Pertinent Studies: CT scan abdomen and pelvis with left sided diverticulosis, no obvious inflammatory changes. See report for details. Urine culture with >100,000 CFU e coli. Stool occult blood positive. C. diff antigen positive, toxin negative. Covid 19 PCR pending. Resuscitation Status: 10/09/20 17:10 Resuscitation Status Routine Resuscitation Status: FULL: Full Resuscitation - Labs Lab Results: 10/10/20 04:55 10/12/20 04:52 Abnormal Lab Results - Last 48 hrs 10/12/20 04:52: Chloride 110 H, Creatinine 1.11 H Microbiology - Entire Visit 10/09/20 14:19 Urine Straight Catheter Urine Culture - Final Escherichia coli 10/09/20 14:50 Stool - Pending C. difficile GDH Antigen & Toxins - Final 10/09/20 14:50 Stool - Pending Clostridioides difficile Toxins A&B (PCR) - Final 10/09/20 14:19 Stool - Pending Stool Occult Blood (KIMI) - Final Additional comments: Repeat glucose at time of discharge assessment was 158 after eating breakfast. - Physical Exam Vitals: Vital Signs (12 hours) Temp Pulse Resp BP BP Pulse Ox 10/13/20 09:05 136/78 10/13/20 08:00 94 L 10/13/20 06:30 96.7 F L 81 18 126/77 Weight Admit Weight 145 lb 5 oz Weight 145 lb 5 oz Physical Exam: The patient was seen and examined on the day of discharge. Problem - Discharge Plan Plan of Treatment: After covid results are back, patient will be transferred to [facility] for shelter, PT and OT. Recommend BMP in 3-5 days to look at potassium and renal function in context of Bactrim therapy. Bactrim to be continued for additional 5 days to complete a 7 day course. F/u stool occult blood positive with further testing and/or referral if indicated. - Problem (1) Acute infective gastroenteritis Code(s): A09 - INFECTIOUS GASTROENTERITIS AND COLITIS, UNSPECIFIED Status: Resolved (2) Acute kidney injury Code(s): N17.9 - ACUTE KIDNEY FAILURE, UNSPECIFIED Status: Resolved (3) COVID-19 Code(s): U07.1 - COVID-19 Status: Acute (4) Diverticulosis Code(s): K57.90 - DVRTCLOS OF INTEST, PART UNSP, W/O PERF OR ABSCESS W/O BLEED Status: Chronic (5) E. coli urinary tract infection Code(s): N39.0 - URINARY TRACT INFECTION, SITE NOT SPECIFIED; B96.20 - UNSP ESCHERICHIA COLI THE CAUSE OF DISEASES CLASSD ELSWHR Status: Acute (6) Hypokalemia Code(s): E87.6 - HYPOKALEMIA Status: Resolved (7) Sundowning Code(s): F05 - DELIRIUM DUE TO KNOWN PHYSIOLOGICAL CONDITION Status: Acute Plan - Discharge Medications Prescriptions: Sulfamethoxazole/Trimethoprim [Bactrim DS] 1 tab PO BID #10 tab Insulin Glargine,Hum.Rec.Anlog [Lantus] 15 unit SQ DAILY-AC #1 vial Insulin Glargine,Hum.Rec.Anlog [Lantus] 10 units SQ HS #1 vial Home Medications: Medication Instructions Recorded Confirmed Type Carvedilol [Coreg] 25 mg PO BID #60 tab 12/26/17 10/09/20 Rx Aspirin [Aspirin EC] 81 mg PO DAILY 09/24/20 10/09/20 History Atorvastatin Calcium 80 mg PO HS 09/24/20 10/09/20 History Cholecalciferol [Vitamin D3] 1,000 unit PO DAILY 09/24/20 10/09/20 History Cholestyramine (With Sugar) 1 packet PO DAILY 09/24/20 10/09/20 History [Cholestyramine Packet] Linagliptin [Tradjenta] 5 mg PO DAILY 09/24/20 10/09/20 History Pantoprazole [Protonix] 40 mg PO DAILY 09/24/20 10/09/20 History cloNIDine HCl 0.1 mg PO BID 09/24/20 10/09/20 History Albuterol Sulfate HFA (OR) 2 puff INH Q4H PRN #1 inh 09/25/20 10/09/20 Rx [Proventil Hfa (or)] Ascorbic Acid [Vitamin C] 1,000 mg PO DAILY #30 tablet 09/25/20 10/09/20 Rx Saccharomyces boulardii [Florastor] 250 mg PO DAILY #30 cap 09/25/20 10/11/20 Rx Zinc Sulfate 220 mg PO DAILY #30 cap 09/25/20 10/09/20 Rx Losartan [Cozaar] 2 tab PO DAILY 10/09/20 10/09/20 History Acetaminophen [Tylenol Regular 650 mg PO Q4H PRN tab 10/13/20 Rx Strength] Glucagon 1 mg IM PRN PRN vial 10/13/20 Rx HumaLOG [HumaLOG Vial] 0 units SC .BEDTIME SLIDING SC PRN 10/13/20 Rx #1 vial HumaLOG [HumaLOG Vial] 0 units SC .MILD SLIDING SCALE PRN 10/13/20 Rx vial Insulin Glargine,Hum.Rec.Anlog 10 units SQ HS #1 vial 10/13/20 Rx [Lantus] Insulin Glargine,Hum.Rec.Anlog 15 unit SQ DAILY-AC #1 vial 10/13/20 Rx [Lantus] Loperamide HCl [Imodium] 2 mg PO PRN PRN cap 10/13/20 Rx Ondansetron [Zofran ODT] 4 mg PO Q6H PRN tab 10/13/20 Rx Sulfamethoxazole/Trimethoprim 1 tab PO BID #10 tab 10/13/20 Rx [Bactrim DS] risperiDONE [RisperDAL] 0.25 mg PO BIDPRN PRN tab 10/13/20 Rx risperiDONE [RisperDAL] 0.25 mg PO HS tab 10/13/20 Rx Allergies: No Known Allergies Allergy (Verified 09/24/20 23:57) - Discharge Instructions Discharge Instructions:: Nursing to perform accucheck QAC and QHS and apply sliding scale. A BMP is recommended in 3-5 days to reassess potassium and renal function on Bactrim DS therapy. Activity:: Activity as Tolerated Nourishment:: Diabetic Diet, Heart Healthy Diet Therapies:: Occupational Therapy, Physical Therapy Equipment/Supplies:: Not Applicable IV Therapy:: Not Applicable - Follow up Plan Referrals: Ramiro Rubio MD [Primary Care Provider] - 7 Days (after shelter discharge) Malachi Massey DO [Active] - 3 Days Disposition: [facility]ENTI[facility] FACILITY Quality - Care Measures CORE MEASURES:: N/A - Exam General Appearance: NAD, awake alert Eye: PERRL, anicteric sclera ENT: normocephalic atraumatic, no oropharyngeal lesions, moist mucosa Neck: supple, no JVD Heart: RRR, no murmur, no gallops, no rubs, normal peripheral pulses Respiratory: CTAB, no wheezes, no rales, no ronchi, normal chest expansion Gastrointestinal: soft, non-tender, non-distended, normal bowel sounds, no pa lpable masses, no guarding, no rigidity Extremities: no cyanosis, no clubbing, no edema Skin: normal turgor, no rashes Neurological: cranial nerve grossly intact, no focal deficits Musculoskeletal: normal tone, no muscle wasting Psychiatric: oriented to person. negative: normal behavior (perseverates on outside issues; unable to redirect to answer questions appropriately), oriented to place, oriented to time
[2020-10-13 14:19] LABS: SARS-CoV-2 PCR by NAA DETECTED (NotDetected)
== END 2020-10-13 16:00 | DRG 391 ==
LOC: BURERS 13:36 → BURMED 16:00
PROVIDERS: ADMIT Family Medicine; ATTEND Family Medicine
DX: A09 Infectious gastroenteritis and colitis, unspecified (principal); U07.1 COVID-19; N17.9 Acute kidney failure, unspecified; N39.0 Urinary tract infection, site not specified; F05 Delirium due to known physiological condition; E11.9 Type 2 diabetes mellitus without complications; E78.5 Hyperlipidemia, unspecified; K57.90 Diverticulosis of intestine, part unspecified, without perforation or abscess without bleeding; E87.6 Hypokalemia; B96.20 Unspecified Escherichia coli [E. coli] as the cause of diseases classified elsewhere; Z95.1 Presence of aortocoronary bypass graft; I25.2 Old myocardial infarction
CPT/HCPCS: 36415; 36416; 74176; 80048; 80053; 81003; 81015; 82274; 83605; 83690; 85025; 87077; 87086; 87186; 87324; 87449; 87493; 87635; 93005; J1815; J2543; J3490; Q0162; U0003; U0005

== ENCOUNTER 2021-03-02 12:55 | Outpatient (CLI) | payer MEDICARE ==
[2021-03-02 13:27] LABS: Anion Gap 16 mmol/L (10-20); BUN (Urea Nitrogen) 40 mg/dL (9.8-20.1); Calc. Creatinine Clearance 0 mL/min (70-130); Calcium 8.5 mg/dL (7.8-10.44); Carbon Dioxide 23 mmol/L (23-31); Chloride 104 mmol/L (98-107); Glucose 237 mg/dL (83-110); Potassium 5.4 mmol/L (3.5-5.1); Sodium 138 mmol/L (136-145)
== END 2021-03-02 12:56 | disposition home or self-care (01) ==
LOC: BURMANOR 12:55
PROVIDERS: ATTEND Registered Nurse Community Health
DX: I50.9 Heart failure, unspecified (principal); E87.6 Hypokalemia
CPT/HCPCS: 80048

== ENCOUNTER 2021-04-08 11:15 | Outpatient (CLI) | payer MEDICARE ==
[2021-04-08 11:32] LABS: Anion Gap 15 mmol/L (10-20); BUN (Urea Nitrogen) 53 mg/dL (9.8-20.1); Calc. Creatinine Clearance 0 mL/min (70-130); Calcium 8.8 mg/dL (7.8-10.44); Carbon Dioxide 20 mmol/L (23-31); Chloride 112 mmol/L (98-107); Glucose 189 mg/dL (83-110); Sodium 142 mmol/L (136-145)
== END 2021-04-08 11:16 | disposition home or self-care (01) ==
LOC: BURMANOR 11:15
PROVIDERS: ATTEND Family Medicine
DX: E87.6 Hypokalemia (principal)
CPT/HCPCS: 80048

== ENCOUNTER 2021-04-19 11:42 | Outpatient (CLI) | payer MEDICARE ==
[2021-04-19 12:11] LABS: Anion Gap 12 mmol/L (10-20); BUN (Urea Nitrogen) 59 mg/dL (9.8-20.1); Calc. Creatinine Clearance 0 mL/min (70-130); Calcium 8.4 mg/dL (7.8-10.44); Carbon Dioxide 23 mmol/L (23-31); Chloride 108 mmol/L (98-107); Glucose 372 mg/dL (83-110); Potassium 5.4 mmol/L (3.5-5.1); Sodium 138 mmol/L (136-145)
== END 2021-04-19 11:43 | disposition home or self-care (01) ==
LOC: BURMANOR 11:42
PROVIDERS: ATTEND Family Medicine
DX: I50.9 Heart failure, unspecified (principal); M62.50 Muscle wasting and atrophy, not elsewhere classified, unspecified site
CPT/HCPCS: 80048

== ENCOUNTER 2021-12-25 15:30 | Outpatient (CLI) | payer MEDICARE | END 2021-12-25 15:31 | disposition home or self-care (01) | LOC: BURMANOR 15:30 | PROVIDERS: ATTEND Nurse Practitioner Family | DX: J10.1 Influenza due to other identified influenza virus with other respiratory manifestations (principal) | CPT/HCPCS: 87804 ==